=== PATIENT | male | born 1980 | race Caucasian/White ===

== ENCOUNTER → 2018-05-18 | Outpatient (CLI) | payer BC, OTHER ==
[~2018-05-18] MED LIST: RECEIVED CONTRAST (Hold Metformin) IV SCH
[2018-05-18] MEDS: NS 100 ML (IVPB) BAG IV ONE (08:53)
[2018-05-18] MEDS: IOHEXOL 350 MG/ML 100 ML (OMNIPAQUE 350) VIAL IV ONE (08:53)
--- NOTE | 2018-05-18 09:25 | Diagnostic Imaging Report ---
PROCEDURE: CT abdomen with and without contrast. TECHNIQUE: Multiple contiguous axial CT images of the abdomen were obtained prior to and after intravenous administration of iodinated contrast. INDICATION: Upper and mid abdominal pain as well as left upper quadrant pain. Patient also has elevated lipase. No prior studies are available for comparison. FINDINGS: The lung bases are clear. No discrete liver mass is identified. The gallbladder is unremarkable. No biliary ductal dilatation is seen. There is homogeneous enhancement to the pancreas. No peripancreatic inflammation is seen. No peripancreatic fluid or fluid collection is identified. The spleen contains multiple calcified granulomas. No adrenal mass is identified. Kidneys are unremarkable. Aorta is nonaneurysmal. No central retroperitoneal or mesenteric lymphadenopathy is seen. There is no ascites. IMPRESSION: Unremarkable pre-and postcontrast CT of the abdomen. No findings to suggest pancreatitis are identified. Dictated by: Dictated on workstation # [id number]
== END ==
LOC: RAD 08:25
PROVIDERS: ATTEND Nurse Practitioner Family
DX: R10.12 Left upper quadrant pain (principal); R74.8 Abnormal levels of other serum enzymes
CPT/HCPCS: 74170

== ENCOUNTER 2018-07-06 09:00 | Outpatient (CLI) | payer OTHER ==
[~2018-07-06] VITALS: Ht 190.5 cm; Wt 103.0 kg
[2018-07-10] MEDS ORDERED: PANT40TA2 PO (09:04)
== END 2018-07-06 10:25 | disposition home or self-care (01) ==
LOC: PREOP 09:00
PROVIDERS: ATTEND Surgery
DX: Z01.818 Encounter for other preprocedural examination (principal)

== ENCOUNTER → 2018-07-10 | Day surgery (SDC) | payer OTHER ==
[~2018-07-10] VITALS: Ht 190.5 cm; Wt 103.0 kg
[~2018-07-10] MED LIST changes: +HURRICAINE EXT TUBE (BENZOCAINE) ONE; +HURRICAINE EXT TUBE (BENZOCAINE) XX PRN; +LACTATED RINGERS 1,000 ML IV ONE; +LACTATED RINGERS 1,000 ML IV STA; +MIDAZOLAM 2 MG/2 ML (VERSED) VIAL ONE; +PANT40TA2 PO; -RECEIVED CONTRAST (Hold Metformin) IV SCH; +proPOfol 200 MG/20 ML (DIPRIVAN) VIAL IV ONE
--- NOTE | 2018-07-10 08:07 | Progress Note-Pre Operative ---
Pre-Operative Progress Note H&P Reviewed The H&P was reviewed, patient examined and no changes noted. Date Seen by Provider: Jul 10, 2018 Time Seen by Provider: 08:06 Date H&P Reviewed: Jul 10, 2018 Time H&P Reviewed: 08:06 Pre-Operative Diagnosis: acid reflux, luq abdominal pain BUCKY KEMP DO Jul 10, 2018 08:07
[2018-07-10 08:20] VITALS: BP 131/78
--- NOTE | 2018-07-10 09:03 | Progress Note-Post Operative ---
Post-Operative Progess Note Surgeon (s)/Rope Making Machine Operator (s) Surgeon BUCKY KEMP DO Rope Making Machine Operator: na Pre-Operative Diagnosis acid reflux, luq abdominal pain Post-Operative Diagnosis hiatal hernia, slight gastritis Procedure & Operative Findings Date of Procedure 07/10/18 Procedure Performed/Findings egd c biopsy Anesthesia Type per [facility] Estimated Blood Loss Estimated blood loss (mL): scant Specimens/Packing Specimens Removed antrum BUCKY KEMP DO Jul 10, 2018 09:03
[2018-07-10 09:05] VITALS: BP 129/60
--- NOTE | 2018-07-10 09:06 | Discharge Inst-Simple/Standard ---
Discharge Inst-Standard Discharge Medications New, Converted or Re-Newed RX: RX on Chart Patient Instructions/Follow Up Plan of Care/Instructions/FU: 2 weeks Bharati Activity as Tolerated: Yes Discharge Diet: Regular Diet BUCKY KEMP DO Jul 10, 2018 09:05
[2018-07-10 09:26] VITALS: BP 113/69
[2018-07-10 09:31] VITALS: BP 113/69
--- NOTE | 2018-07-10 12:56 | OPERATIVE REPORT ---
DATE OF SERVICE: 07/10/2018 PREOPERATIVE DIAGNOSES: Left upper quadrant abdominal pain, acid reflux. POSTOPERATIVE DIAGNOSES: Hiatal hernia, slight gastritis. PROCEDURE: EGD with biopsy. SURGEON: Bucky Calabrese DO ANESTHESIA: Per MDA. ESTIMATED BLOOD LOSS: Scant. COMPLICATIONS: None. INDICATIONS: The patient is a 38-year-old male with acid reflux and left upper quadrant abdominal pain. He understands risks and benefits of procedure and wished to proceed with procedure. Consent was signed in the chart. PROCEDURE: The patient was taken to the endoscopy suite, placed in left lateral recumbent position and timeout was performed. Scope was inserted in mouth, down the esophagus, stomach and into the duodenum. There are no polyps, mass or ulcerations in the duodenum. Scope was slowly retracted back into the stomach where it was further insufflated. Slight erythematous changes present. Biopsy was obtained of the antrum. Scope was continued to slowly retracted back. It was retroflexed, sliding hiatal hernia present. No other pathology noted. Scope was returned to its normal position, slowly withdrawn to the distal esophagus, which had a little bit of irritation from the biopsies some scant bleeding. No other pathology noted. Scope was then slowly retracted back and completely removed. The patient tolerated procedure well without any complications and taken to recovery room in stable condition. RECOMMENDATIONS: The patient will be started on Protonix 40 mg daily. We will follow up in the office in 2 weeks. Further recommendations pending biopsy results and see how he is doing at that time. Job ID: [id number] DocumentID: [id number] Dictated Date: 07/10/2018 09:09:11 Helmet Binder Date: 07/10/2018 12:55:43 Dictated By: BUCKY CALABRESE DO
== END | disposition home or self-care (01) ==
LOC: ENDO 07:29
PROVIDERS: ATTEND Surgery
DX: K21.9 Gastro-esophageal reflux disease without esophagitis (principal); K44.9 Diaphragmatic hernia without obstruction or gangrene; K29.70 Gastritis, unspecified, without bleeding